=== PATIENT | male | born 1990 | race Two or more races ===

== ENCOUNTER 2019-06-04 11:40 | Emergency (ER) | payer BC ==
--- NOTE | 2019-06-04 11:48 | EDM.PDOC ---
ED HPI GENERAL MEDICAL PROBLEM - General Chief Complaint: Lower Extremity Injury/Pain Stated Complaint: INJURED LEFT SULLIVAN AT WORK Time Seen by Provider: 06/04/19 11:48 Source of Information: Reports: Patient History Limitations: Reports: No Limitations - History of Present Illness INITIAL COMMENTS - FREE TEXT/NARRATIVE: HISTORY AND PHYSICAL: History of present illness: Patient is a 29-year-old male presents to the ED with complaint of left left injury. He states he was walking up stairs yesterday at work when he slipped and fell hitting his left sullivan on the railing. He states this morning it was swollen and has pain when he walks on it. He denies proximal knee or hip pain and denies distal pain, numbness, or tingling. Review of systems: As per history of present illness and below otherwise all systems reviewed and negative. Past medical history: As per history of present illness and as reviewed below otherwise noncontributory. Surgical history: As per history of present illness and as reviewed below otherwise noncontributory. Social history: No reported history of drug or alcohol abuse. Family history: As per history of present illness and as reviewed below otherwise noncontributory. Physical exam: General: Patient sitting comfortably in no acute distress and nontoxic appearing HEENT: Atraumatic, normocephalic, pupils reactive, negative for conjunctival pallor or scleral icterus, mucous membranes moist, throat clear, neck supple, nontender, trachea midline. No meningeal signs. Lungs: Clear to auscultation, breath sounds equal bilaterally, chest nontender. Heart: S1S2, regular, negative for clicks, rubs, or overt murmur. Abdomen: Soft, nondistended, nontender. Negative for masses or hepatosplenomegaly. Negative for costovertebral tenderness. No rigidity, rebound , guarding. Pelvis: Stable nontender. Genitourinary: Deferred. Rectal: Deferred. Extremities: There is a quarter sized area of swelling without ecchymosis or erythema of the left anterior lower leg. Skin is intact. No left ankle or knee pain to palpation or pain with ROM. negative for cords or calf pain. Neurovascular unremarkable. Neuro: Awake, alert, oriented. Cranial nerves II through XII unremarkable. Cerebellum unremarkable. Motor and sensory unremarkable throughout. Exam nonfocal. Notes: Diagnostics: x-ray left tib/fib Therapeutics: [] Prescriptions: Impression: Left leg injury Plan: 1. Ice, elevate, and motrin or tylenol as needed 2. Follow up with primary care provider, please call the number provided to schedule an appointment 3. Return to ED as needed as discussed Definitive disposition and diagnosis as appropriate pending reevaluation and review of above. Left Lower Leg Pain Score (Numeric/FACES): 6 - Related Data Allergies Allergy/AdvReac Type Severity Reaction Status Date / Time amoxicillin Allergy Rash Verified 06/04/19 11:51 Home Meds: Home Meds . [No Known Home Meds] 06/04/19 [History] Review of Systems - Review of Systems Review Of Systems: ROS reveals no pertinent complaints other than HPI. ED EXAM, GENERAL - Physical Exam Exam: See Below (see dictation) Course - Vital Signs Last Recorded V/S: Last Vital Signs Temp 96.3 F 06/04/19 11:51 Pulse 62 06/04/19 11:51 Resp 16 06/04/19 11:51 BP 134/75 06/04/19 11:51 Pulse Ox 97 06/04/19 11:51 Departure - Departure Time of Disposition: 12:51 Disposition: Home, Self-Care 01 Condition: Good Clinical Impression: Left leg injury - Discharge Information Referrals: PCP,None [Primary Care Provider] - Forms: ED Department Discharge Additional Instructions: The following information is given to patients seen in the emergency department who are being discharged to home. This information is to outline your options for follow-up care. We provide all patients seen in our emergency department with a follow-up referral. The need for follow-up, as well as the timing and circumstances, are variable depending upon the specifics of your emergency department visit. If you don't have a primary care physician on staff, we will provide you with a referral. We always advise you to contact your personal physician following an emergency department visit to inform them of the circumstance of the visit and for follow-up with them and/or the need for any referrals to a consulting specialist. The emergency department will also refer you to a specialist when appropriate. This referral assures that you have the opportunity for follow-up care with a specialist. All of these measure are taken in an effort to provide you with optimal care, which includes your follow-up. Under all circumstances we always encourage you to contact your private physician who remains a resource for coordinating your care. When calling for follow-up care, please make the office aware that this follow-up is from your recent emergency room visit. If for any reason you are refused follow-up, please contact the [facility] Emergency Department at and asked to speak to the emergency department charge nurse. [facility] [address] [place] [id number] [facility] [address] [place] [id number] 1. Ice, elevate, and motrin or tylenol as needed 2. Follow up with primary care provider, please call the number provided to schedule an appointment 3. Return to ED as needed as discussed
--- NOTE | 2019-06-04 12:48 | CR ---
Left tibia and fibula: Two views left tibia and fibula were obtained. Comparison: No previous left tibia or fibula study. No fracture or other bony abnormality is seen. Impression: No abnormality is appreciated on left tibia and fibula study. Diagnostic code #1 MTDD
== END 2019-06-04 13:19 | disposition home or self-care (01) ==
LOC: MW.ED 11:40
DX: S89.92XA Unspecified injury of left lower leg, initial encounter (principal); Z88.1 Allergy status to other antibiotic agents; W01.198A Fall on same level from slipping, tripping and stumbling with subsequent striking against other object, initial encounter; Y93.01 Activity, walking, marching and hiking; Y92.89 Other specified places as the place of occurrence of the external cause; Y99.0 Civilian activity done for income or pay
CPT/HCPCS: 73590-26-LT; 73590-LT; 99283-25

== ENCOUNTER 2019-12-11 14:45 | Emergency (ER) | payer BC, OTHER ==
--- NOTE | 2019-12-11 15:42 | EDM.PDOC ---
ED HPI GENERAL MEDICAL PROBLEM - General Chief Complaint: Respiratory Problem Stated Complaint: COUGH Time Seen by Provider: 12/11/19 14:59 Source of Information: Reports: Patient History Limitations: Reports: No Limitations - History of Present Illness INITIAL COMMENTS - FREE TEXT/NARRATIVE: This 29 year old male presents to the ED with a chief complaint of increasing cough and SOB along with body aches. He states that he was in [place] two weeks ago and made several contacts with people in [facility] he did not know. He states that he began to have symptoms about 8 days ago. He also complains of a mild headache. Onset: Gradual - Related Data Allergies Allergy/AdvReac Type Severity Reaction Status Date / Time amoxicillin Allergy Rash Verified 12/11/19 14:47 Home Meds: Home Meds Benzonatate 200 mg PO BID 5 Days #10 capsule 12/11/19 [Rx] Past Medical History - Past Health History Medical/Surgical History: Denies Medical/Surgical History - Infectious Disease History Infectious Disease History: Reports: Chicken Pox - Past Surgical History Other Musculoskeletal Surgeries/Procedures:: Lower back spasmps a couple years ago. Social & Family History - Family History Family Medical History: Noncontributory - Tobacco Use Smoking Status *Q: Current Every Day Smoker Years of Tobacco use: 5 Packs/Tins Daily: 0.5 - Caffeine Use Caffeine Use: Reports: Coffee, Energy Drinks, Soda, Tea - Recreational Drug Use Recreational Drug Use: No ED ROS GENERAL - Review of Systems Review Of Systems: See Below Constitutional: Reports: Fever (history of fever and chills over past two days.) , Chills (chills for 24 hours.), Fatigue HEENT: Reports: No Symptoms Respiratory: Reports: Shortness of Breath, Cough (non-productive). Denies: Sputum, Hemoptysis Cardiovascular: Reports: No Symptoms Endocrine: Reports: No Symptoms GI/Abdominal: Reports: No Symptoms : Reports: No Symptoms Musculoskeletal: Reports: No Symptoms Skin: Reports: No Symptoms Neurological: Reports: No Symptoms Psychiatric: Reports: No Symptoms ED EXAM, GENERAL - Physical Exam Exam: See Below Exam Limited By: No Limitations General Appearance: Alert, WD/WN, No Apparent Distress Ears: Normal External Exam, Normal Canal, Hearing Grossly Normal, Normal TMs Nose: Normal Inspection, Normal Mucosa, No Blood Throat/Mouth: Normal Inspection, Normal Oropharynx Head: Atraumatic, Normocephalic Neck: Normal Inspection, Supple, Non-Tender. No: Lymphadenopathy (L), Lymphadenopathy (R) Respiratory/Chest: No Respiratory Distress, Lungs Clear, Normal Breath Sounds, Chest Non-Tender Cardiovascular: Normal Peripheral Pulses, Regular Rate, Rhythm, No Edema, No Gallop, No JVD, No Rub GI/Abdominal: Normal Bowel Sounds, Soft, Non-Tender, No Organomegaly, No Mass (Male) Exam: Deferred Rectal (Males) Exam: Deferred Back Exam: Normal Inspection Extremities: Normal Inspection, Normal Capillary Refill Neurological: Alert, Oriented, CN II-XII Intact, Normal Cognition, Normal Reflexes, No Motor/Sensory Deficits Psychiatric: Normal Affect, Normal Mood Skin Exam: Warm, Dry, Intact, Normal Color, No Rash Lymphatic: No Adenopathy Course - Vital Signs Text/Narrative:: The patient Influ A&B and the chest x-ray was negative. The COVID test will be resulted in two to three days. He will be discharged with the latest CDC protocol. He agrees with the discharge plan. Last Recorded V/S: Last Vital Signs Temp 97.5 F 12/11/19 14:47 Pulse 98 12/11/19 14:47 Resp 16 12/11/19 14:47 BP 141/88 H 12/11/19 14:47 Pulse Ox 95 12/11/19 14:47 - Orders/Labs/Meds Orders: Active Orders 24 hr Category Date Time Status CORONAVIRUS COVID-19 PCR PHL [MREF] Stat Lab 12/11/19 15:30 Received Isolation [COMM] Routine Oth 12/11/19 15:14 Active Departure - Departure Time of Disposition: 16:55 Disposition: Home, Self-Care 01 Condition: Good Clinical Impression: Viral syndrome - Discharge Information *PRESCRIPTION DRUG MONITORING PROGRAM REVIEWED*: Yes *COPY OF PRESCRIPTION DRUG MONITORING REPORT IN PATIENT ARIELA: Yes Instructions: Viral Respiratory Infection, [id number] Referrals: PCP,None [Primary Care Provider] - Forms: ED Department Discharge Additional Instructions: Take all medications as directed. We will give you a call as soon as your test are back. Follow the CDC guideline until you hear back from the hospital. Follow up with your PCP in the next two to four days. Drink plenty of clear liquids for the next 24-48 hours. Rest for the next 24 hours. Return to the ED if your condition gets worse or should you have any questions or concerns. The following information is given to patients seen in the emergency department who are being discharged to home. This information is to outline your options for follow-up care. We provide all patients seen in our emergency department with a follow-up referral. The need for follow-up, as well as the timing and circumstances, are variable depending upon the specifics of your emergency department visit. If you don't have a primary care physician on staff, we will provide you with a referral. We always advise you to contact your personal physician following an emergency department visit to inform them of the circumstance of the visit and for follow-up with them and/or the need for any referrals to a consulting specialist. The emergency department will also refer you to a specialist when appropriate. This referral assures that you have the opportunity for follow-up care with a specialist. All of these measure are taken in an effort to provide you with optimal care, which includes your follow-up. Under all circumstances we always encourage you to contact your private physician who remains a resource for coordinating your care. When calling for follow-up care, please make the office aware that this follow-up is from your recent emergency room visit. If for any reason you are refused follow-up, please contact the [facility] Emergency Department at and asked to speak to the emergency department charge nurse. Sepsis Event Note - Evaluation Sepsis Screening Result: No Definite Risk - Focused Exam Vital Signs: Vital Signs Temp Pulse Resp BP Pulse Ox 12/11/19 14:47 97.5 F 98 16 141/88 H 95 Date Exam was Performed: 12/11/19 Time Exam was Performed: 16:52 - My Orders Last 24 Hours: My Active Orders 12/11/19 15:14 Isolation [COMM] Routine 12/11/19 15:30 CORONAVIRUS COVID-19 PCR PHL [MREF] Stat - Assessment/Plan Last 24 Hours: My Active Orders 12/11/19 15:14 Isolation [COMM] Routine 12/11/19 15:30 CORONAVIRUS COVID-19 PCR PHL [MREF] Stat
--- NOTE | 2019-12-11 15:46 | CR ---
Chest: Portable view of the chest was obtained. Comparison: No prior chest imaging is available. Heart size and mediastinum are normal. Lungs show no acute parenchymal change. Bony structures are grossly intact. Impression: 1. Nothing acute is appreciated on portable chest x-ray. Diagnostic code #1 Study was dictated in MDT
== END 2019-12-11 17:35 | disposition home or self-care (01) ==
LOC: MW.ED 14:45
DX: B34.9 Viral infection, unspecified (principal); F17.210 Nicotine dependence, cigarettes, uncomplicated
CPT/HCPCS: 71045; 71045-26; 87804; 99282; 99285-25; U0002

== ENCOUNTER 2020-04-15 20:55 | Emergency (ER) | payer BC, OTHER ==
--- NOTE | 2020-04-15 21:26 | EDM.PDOC ---
ED HPI GENERAL MEDICAL PROBLEM - General Chief Complaint: Respiratory Problem Stated Complaint: SHORTNESS OF BREATHE Time Seen by Provider: 04/15/20 21:23 Source of Information: Reports: Patient History Limitations: Reports: No Limitations - History of Present Illness INITIAL COMMENTS - FREE TEXT/NARRATIVE: HISTORY AND PHYSICAL: History of present illness: Patient is a 30-year-old male who presents to the emergency room with complaints of shortness of breath and cough. He states he was seen in the emergency room 4 months ago for the same symptoms. At that time he had a chest x-ray, influenza and COVID-19 screening and was told everything was normal. He was given an inhaler which he had used and did have some good relief with this medication. He has been attributing his shortness of breath and cough to allergies. He states his symptoms are worse when he is around his dog. He reports he is slightly anxious as he feels he may have an underlying pneumonia and would like a chest x-ray done again. He states he has no concerns of COVID-19, declines wanting to be tested. His family members have been healthy and have not had any recent illness. Patient denies any fever, chills, headache, change in vision, syncope or near syncope. Denies any chest pain, back pain, abdominal pain, nausea, vomiting, diarrhea, constipation or dysuria.Patient has been eating and drinking appropriately. Review of systems: As per history of present illness and below otherwise all systems reviewed and negative. Past medical history: As per history of present illness and as reviewed below otherwise noncontributory. Surgical history: As per history of present illness and as reviewed below otherwise noncontributory. Social history: See social history for further information Family history: As per history of present illness and as reviewed below otherwise noncontributory. Physical exam: General: Well developed and well-nourished 30-year-old male. Alert and orient ed. Nontoxic-appearing and in no acute distress. HEENT: Atraumatic, normocephalic, pupils equal and reactive bilaterally, negative for conjunctival pallor or scleral icterus, mucous membranes moist, TMs normal bilaterally, throat clear, neck supple, nontender, trachea midline. No drooling or trismus noted. No meningeal signs. No hot potato voice noted. Lungs: Faint/fine exp wheezing to bilateral bases bilateral to auscultation, breath sounds equal bilaterally, chest nontender. Heart: S1S2, regular rate and rhythm without overt murmur Abdomen: Soft, nondistended, nontender. Skin: Intact, warm, dry. No lesions or rashes noted. Hematologic: No petechiae or purpra. Mucosa appropriate color and normal nail bed color and refill. Extremities: Atraumatic, moves all extremities per self without difficulty or deficits, negative for cords or calf pain. Neurovascular unremarkable. Neuro: Awake, alert, oriented. Cranial nerves II through XII unremarkable. Cerebellum unremarkable. Motor and sensory unremarkable throughout. Exam nonfocal. Notes: Patient's vital signs are stable, based on my evaluation and interview I am not concerned for a PE or COVID-19. Patient declines wanting any lab work at this time, stating that he would like just a chest x-ray. Due to length of symptoms I will treat with azithromycin. Will refill his inhaler. We discussed signs and symptoms that would prompt him to return to the emergency room. Supportive care measures were reviewed and discussed. Voices understanding and is agreeable to plan of care. Denies any further questions or concerns at this time. Diagnostics: CXR Therapeutics: Azithromycin, Prednisone Prescription: Albuterol Inhaler, Zpak, Prednisone Impression: Bronchitis Plan: 1. Today we are treating you with antibiotics based on the length of symptoms and your evaluation. The medication will treat atypical pneumonia. I also refilled your albuterol inhaler, can use 1-2 puffs every 4 hours as needed. If your symptoms should worsen, new symptoms develop or any of the signs and symptoms we discussed should arise please return to the emergency room or call [phone] (if needed). 2. I would like you to connect and establish care with a primary care provider. Please call Friday to set up an appointment. 3. Consider an [id number] allergy medication for your allergy symptoms (may also help with your breathing issues). Definitive disposition and diagnosis as appropriate pending reevaluation and review of above. - Related Data Allergies Allergy/AdvReac Type Severity Reaction Status Date / Time amoxicillin Allergy Rash Verified 04/15/20 21:44 Home Meds: Home Meds Benzonatate 200 mg PO BID 5 Days #10 capsule 12/11/19 [Rx] Albuterol Sulfate [Proair Hfa] 2 puff IH Q4H PRN #1 [id number] 04/15/20 [Rx] Azithromycin [Zithromax] 250 mg PO DAILY 5 Days #5 tab 04/15/20 [Rx] predniSONE [Prednisone] 50 mg PO DAILY 4 Days #4 tablet 04/15/20 [Rx] Past Medical History - Past Health History Medical/Surgical History: Denies Medical/Surgical History - Infectious Disease History Infectious Disease History: Reports: Chicken Pox - Past Surgical History Other Musculoskeletal Surgeries/Procedures:: Lower back spasmps a couple years ago. Social & Family History - Family History Family Medical History: Noncontributory - Caffeine Use Caffeine Use: Reports: Coffee, Energy Drinks, Soda, Tea ED ROS GENERAL - Review of Systems Review Of Systems: Comprehensive ROS is negative, except as noted in HPI. ED EXAM, GENERAL - Physical Exam Exam: See Below (See dictation) Course - Orders/Labs/Meds Orders: Active Orders 24 hr Category Date Time Status Communication Order [RC] STAT Care 04/15/20 21:42 Active RT Post Treatment Assessment [RC] Click to Edit Care 04/15/20 21:42 Active RT Pre-Treatment Assessment [RC] Click to Edit Care 04/15/20 21:42 Active Chest 2V [CR] Stat Exams 04/15/20 21:24 Ordered Meds: Medications Discontinued Medications Generic Name Dose Route Start Last Admin Trade Name Freq PRN Reason Stop Dose Admin Albuterol 2 gm 04/15/20 21:41 Ventolin Hfa INH 04/15/20 21:42 ONETIME ONE Azithromycin 500 mg 04/15/20 21:34 Zithromax PO 04/15/20 21:35 NOW STA Prednisone 40 mg 04/15/20 21:41 Prednisone PO 04/15/20 21:42 ONETIME ONE Departure - Departure Time of Disposition: 21:49 Disposition: Home, Self-Care 01 Clinical Impression: Bronchitis - Discharge Information Prescriptions: predniSONE [Prednisone] 50 mg PO DAILY 4 Days #4 tablet Albuterol Sulfate [Proair Hfa] 2 puff IH Q4H PRN #1 hfa.aer.ad PRN Reason: Dyspnea Azithromycin [Zithromax] 250 mg PO DAILY 5 Days #5 tab Instructions: Acute Bronchitis, Adult, [id number] Referrals: PCP,None [Primary Care Provider] - Forms: ED Department Discharge Additional Instructions: The following information is given to patients seen in the emergency department who are being discharged to home. This information is to outline your options for follow-up care. We provide all patients seen in our emergency department with a follow-up referral. The need for follow-up, as well as the timing and circumstances, are variable depending upon the specifics of your emergency department visit. If you don't have a primary care physician on staff, we will provide you with a referral. We always advise you to contact your personal physician following an emergency department visit to inform them of the circumstance of the visit and for follow-up with them and/or the need for any referrals to a consulting specialist. The emergency department will also refer you to a specialist when appropriate. This referral assures that you have the opportunity for follow-up care with a specialist. All of these measure are taken in an effort to provide you with optimal care, which includes your follow-up. Under all circumstances we always encourage you to contact your private physician who remains a resource for coordinating your care. When calling for follow-up care, please make the office aware that this follow-up is from your recent emergency room visit. If for any reason you are refused follow-up, please contact the [facility] Emergency Department at and asked to speak to the emergency department charge nurse. [facility] Primary Care [address] [place] [id number] [place] [address] Thank you for choosing the [facility] emergency department in [place] for your medical needs today. It was a pleasure caring for you. Today you were seen in the emergency department for cough and shortness of breath. 1. Today we are treating you with antibiotics based on the length of symptoms and your evaluation. The medication will treat atypical pneumonia. I also refilled your albuterol inhaler, can use 1-2 puffs every 4 hours as needed. If your symptoms should worsen, new symptoms develop or any of the signs and symptoms we discussed should arise please return to the emergency room or call [phone] (if needed). 2. I would like you to connect and establish care with a primary care provider. Please call Friday to set up an appointment. 3. Consider an [id number] allergy medication for your allergy symptoms (may also help with your breathing issues). - My Orders Last 24 Hours: My Active Orders 04/15/20 21:24 Chest 2V [CR] Stat 04/15/20 21:42 Communication Order [RC] STAT RT Post Treatment Assessment [RC] Click to Edit RT Pre-Treatment Assessment [RC] Click to Edit - Assessment/Plan Last 24 Hours: My Active Orders 04/15/20 21:24 Chest 2V [CR] Stat 04/15/20 21:42 Communication Order [RC] STAT RT Post Treatment Assessment [RC] Click to Edit RT Pre-Treatment Assessment [RC] Click to Edit
[2020-04-15] MEDS ORDERED: Azithromycin 250 MG Tab PO STA (21:34)
[2020-04-15] MEDS ORDERED: Albuterol 8 GM Inhaler INH ONE (21:41)
[2020-04-15] MEDS ORDERED: predniSONE 20 MG Tab PO ONE (21:41)
--- NOTE | 2020-04-15 22:35 | CR ---
INDICATION: Chest pain. Shortness of breath. TECHNIQUE: PA and lateral chest. COMPARISON: None. FINDINGS: Clear lungs. Normal heart size and pulmonary vascularity. Normal included skeleton. IMPRESSION: Negative two-view chest. Dictated by Naga Cortes MD @ Apr 15 2020 10:32PM Signed by Dr. Naga Cortes @ Apr 15 2020 10:33PM
== END 2020-04-15 22:54 | disposition home or self-care (01) ==
LOC: MW.ED 20:55
DX: J40 Bronchitis, not specified as acute or chronic (principal); Z88.1 Allergy status to other antibiotic agents
CPT/HCPCS: 71046; 99285; A9270; 99282

== ENCOUNTER 2020-06-25 21:19 | Emergency (ER) | payer BC ==
[2020-06-25] MEDS ORDERED: Prochlorperazine 10 MG/2 ML SDV IVPUSH ONE (22:04)
[2020-06-25] MEDS ORDERED: diphenhydrAMINE 50 MG/ML SDV IVPUSH ONE (22:04)
[2020-06-25] MEDS ORDERED: Ketorolac 15 MG/ML SDV IVPUSH ONE (22:04)
[2020-06-25] MEDS ORDERED: Dextrose 5%-Lactated Ringers 1,000 ML IV SCH (22:15)
[2020-06-25 23:55] LABS: BLOOD UREA NITROGEN,BUN 21 mg/dL (7.0-18.0); CARBON DIOXIDE,CO2 26.5 mmol/L (21.0-32.0); CHLORIDE,CL 105 mmol/L (98-107); GLUCOSE RANDOM 111 mg/dL (74-106); POTASSIUM,K 4.1 mmol/L (3.5-5.1); SODIUM,NA 140 mmol/L (136-148)
--- NOTE | 2020-06-26 01:15 | EDM.PDOC ---
ED HPI GENERAL MEDICAL PROBLEM - General Chief Complaint: General Stated Complaint: LIGHTHEADED FOR 2 WEEKS Time Seen by Provider: 06/25/20 21:47 - History of Present Illness INITIAL COMMENTS - FREE TEXT/NARRATIVE: CHIEF COMPLAINT(S): Dizziness HISTORY OF PRESENT ILLNESS: This is a 30-year-old man without any past medical history who comes to the emergency department with a chief complaint of dizziness. The patient states that off and on for the last 2 weeks he has been experiencing a headache which he describes as frontal he describes it as a constant aching pain rated 7 out of 10 without any associated diplopia, numbn ess, tingling, or weakness. He states that he feels pressure in his eyes. He denies any cough, runny nose, congestion, or earache. He states that the pain is worse when he moves his head. He states that he does have some photosensitivity. States that it feels like a migraine. He states that he does feel dizzy like the room is spinning and does have some nausea but denies any vomiting. He denies any trouble walking, trouble speaking, or trouble swallowing. He states that he has been tolerating p.o. without any difficulty. He denies any family history of aneurysms, migraines or any personal history of headache. He denies any head injury or loss of consciousness. He denies any fevers, neck pain, or chills. He states that he is in the emergency department because his mother said that he needs to come in to check his blood levels. REVIEW OF SYSTEMS: Constitutional: Denies fever, chills. Eyes: Positive for pressure behind the eyes. Ears, Nose, Mouth, & Throat: Denies earache, runny nose, sore throat Cardiovascular: Denies chest pain Respiratory: Denies shortness of breath Gastrointestinal: Positive for nausea. Denies vomiting, diarrhea, hematochezia, hematemesis, bilious emesis Genitourinary: Denies hematuria Skin:Denies a rash Neurological: Positive for headache. Denies blurred vision, diplopia, numbness, tingling, weakness Psychiatric: Denies depression PAST MEDICAL HISTORY: As per history of present illness and as reviewed below otherwise noncontributory. SURGICAL HISTORY: As per history of present illness and as reviewed below otherwise noncontributory. SOCIAL HISTORY: As per history of present illness and as reviewed below otherwise noncontributory. FAMILY HISTORY: As per history of present illness and as reviewed below otherwise noncontributory. EXAMINATION OF ORGAN SYSTEMS/BODY AREAS: Constitutional: Blood pressure was 138/81, heart rate 86, respiratory rate 16 with an oxygen saturation 96% on room air. Temperature 36.1 General: Overall well-appearing man who is in no acute distress Psychiatric: Appropriate mood and affect. Eyes: No scleral icterus or conjunctival erythema pupils are equal round and reactive to light. Extraocular movements are intact. No vertical, horizontal, or rotary nystagmus. ENMT: Moist mucous membranes. No pharyngeal erythema tongue protrudes midline. Bilateral nasal turbinates clear without any erythema or drainage. Bilateral tympanic membranes clear without any effusion or erythema. Cardiovascular: Regular, rate, and rythym. No gallops, murmurs, or rubs. Bilateral upper extremity pulses symmetric and intact. No peripheral edema. No JVD. Respiratory: Lungs clear to auscultation bilaterally. No wheezes, rales, or rhonchi. Gastrointestinal: Soft, non-tender, non-distended. Normoactive bowel sounds Genitourinary: No suprapubic tenderness Musculoskeletal: Normal range of motion. Skin: No lesions or abrasions. Neurological: AOx4. CN grossly intact. Stregth 5/5 in bilateral upper and lower extremity. Sensation is intact bilaterally in upper and lower extremity. Gait appears normal. Finger to nose, heel to sullivan, rapid alternating movements intact. MEDICAL DECISION MAKING AND COURSE IN THE ED WITH INTERPRETATION/REVIEW OF DIAGNOSTIC STUDIES: This is a 30-year-old and without any significant past medical history who comes to the emergency department with 2 weeks of intermittent bifrontal headache associated with photosensitivity and nausea and a vertigo-like sensation who has a normal neurological examination and vital signs. At this time the patient does not have any focal neurological deficit. I do believe this is secondary to possibly migraine headache versus viral upper respiratory infection versus sinusitis. We will obtain labs to evaluate for any abnormality. Will provide the patient with Toradol, Compazine, Benadryl and reevaluate for improvement. I do not believe any imaging is indicated at this time. Laboratory: CBC is unremarkable. BMP is unremarkable. On reevaluation, the patient continued to be neurologically intact and had no worsening of his headache or nausea. He states that his headache and nausea had significantly improved. He was no longer experiencing vertigo. I did discuss with him at this time that I do believe this secondary to migraine headache versus benign vertigo. I discussed the use of [id number] Excedrin or Aleve for pain relief. He is to return to the emergency department for any new or worsening symptoms such as intractable light-emitting, trouble walking, trouble speaking, trouble swallowing. He was amenable to discharge at this time and had no further questions DISPOSITION: The patient was discharged home in stable condition. The patient will follow up with PCP within 2 to 3 days CONDITION: Fair PROCEDURES: None FINAL IMPRESSION(S)/DIAGNOSES: 1. Subacute migraine headache Jp Lerma M.D. Headache Pain Score (Numeric/FACES): 3 - Related Data Allergies Allergy/AdvReac Type Severity Reaction Status Date / Time amoxicillin Allergy Rash Verified 04/15/20 21:44 Home Meds: Home Meds Albuterol Sulfate [Proair Hfa] 2 puff IH Q4H PRN #1 [email or web address] 04/15/20 [Rx] Past Medical History - Past Health History Medical/Surgical History: Denies Medical/Surgical History - Infectious Disease History Infectious Disease History: Reports: Chicken Pox - Past Surgical History Other Musculoskeletal Surgeries/Procedures:: Lower back spasmps a couple years ago. Social & Family History - Family History Family Medical History: Noncontributory - Tobacco Use Tobacco Use Status *Q: Former Tobacco User Used Tobacco, but Quit: Yes Month/Year Tobacco Last Used: 02/2020 - Caffeine Use Caffeine Use: Reports: Coffee, Energy Drinks, Soda, Tea - Recreational Drug Use Recreational Drug Use: No ED ROS GENERAL - Review of Systems Review Of Systems: See Below ED EXAM, GENERAL - Physical Exam Exam: See Below Course - Vital Signs Last Recorded V/S: Last Vital Signs Temp 36.2 C 06/25/20 23:51 Pulse 81 06/26/20 01:01 Resp 16 06/26/20 01:01 BP 124/70 06/26/20 01:01 Pulse Ox 95 06/26/20 01:01 - Orders/Labs/Meds Labs: Laboratory Tests 06/25/20 06/25/20 Range/Units 23:30 23:30 WBC 6.73 (4.0-11.0) K/uL RBC 5.26 (4.50-5.90) M/uL Hgb 15.2 (13.0-17.0) g/dL Hct 45.8 (38.0-50.0) % MCV 87.1 (80.0-98.0) fL MCH 28.9 (27.0-32.0) pg MCHC 33.2 (31.0-37.0) g/dL RDW Std Deviation 40.4 (28.0-62.0) fl RDW Coeff of Damaso 13 (11.0-15.0) % Plt Count 167 (150-400) K/uL MPV 11.00 (7.40-12.00) fL Neut % (Auto) 50.7 (48.0-80.0) % Lymph % (Auto) 39.8 (16.0-40.0) % Boyd % (Auto) 8.2 (0.0-15.0) % Eos % (Auto) 1.2 (0.0-7.0) % Baso % (Auto) 0.1 (0.0-1.5) % Neut # (Auto) 3.4 (1.4-5.7) K/uL Lymph # (Auto) 2.7 H (0.6-2.4) K/uL Boyd # (Auto) 0.6 (0.0-0.8) K/uL Eos # (Auto) 0.1 (0.0-0.7) K/uL Baso # (Auto) 0.0 (0.0-0.1) K/uL Nucleated RBC % 0.0 /100WBC Nucleated RBCs # 0 K/uL Sodium 140 (136-148) mmol/L Potassium 4.1 (3.5-5.1) mmol/L Chloride 105 (98-107) mmol/L Carbon Dioxide 26.5 (21.0-32.0) mmol/L BUN 21 H (7.0-18.0) mg/dL Creatinine 0.9 (0.8-1.3) mg/dL Est Cr Clr Drug Dosing 118.92 mL/min Estimated GFR (MDRD) > 60.0 ml/min Glucose 111 H (74-106) mg/dL Calcium 9.2 (8.5-10.1) mg/dL Meds: Medications Discontinued Medications Generic Name Dose Route Start Last Admin Trade Name Silas PRN Reason Stop Dose Admin Diphenhydramine HCl 50 mg 06/25/20 22:04 06/25/20 23:27 Benadryl IVPUSH 06/25/20 22:05 50 mg ONETIME ONE Administration Dextrose/Lactated Ringer's 1,000 mls @ 999 mls/hr 06/25/20 22:15 06/25/20 23:27 Dextrose 5%-Lactated Ringers IV 999 mls/hr ASDIRECTED TAL Administration Ketorolac Tromethamine 15 mg 06/25/20 22:04 06/25/20 23:27 Toradol IVPUSH 06/25/20 22:05 15 mg ONETIME ONE Administration Prochlorperazine Edisylate 10 mg 06/25/20 22:04 06/25/20 23:27 Compazine IVPUSH 06/25/20 22:05 10 mg ONETIME ONE Administration Departure - Departure Time of Disposition: 01:14 Disposition: Home, Self-Care 01 Condition: Fair Clinical Impression: Migraine Qualifiers: Migraine type: without aura Status migrainosus presence: without status migrainosus Intractability: not intractable Qualified Code(s): G43.009 - Migraine without aura, not intractable, without status migrainosus - Discharge Information *PRESCRIPTION DRUG MONITORING PROGRAM REVIEWED*: No *COPY OF PRESCRIPTION DRUG MONITORING REPORT IN PATIENT ARIELA: No Instructions: Migraine Headache, [id number] Referrals: PCP,None [Primary Care Provider] - Forms: ED Department Discharge Additional Instructions: The patient is informed of any results of their evaluation and diagnostic workup and all questions are answered. They are given discharge instructions and return precautions. The patient is stable for discharge. The patient states they understand and agree with the plan and that they will return if their symptoms get worse or if they have any new concerns. The following information is given to patients seen in the emergency department who are being discharged to home. This information is to outline your options for follow-up care. We provide all patients seen in our emergency department with a follow-up referral. The need for follow-up, as well as the timing and circumstances, are variable depending upon the specifics of your emergency department visit. If you don't have a primary care physician on staff, we will provide you with a referral. We always advise you to contact your personal physician following an emergency department visit to inform them of the circumstance of the visit and for follow-up with them and/or the need for any referrals to a consulting specialist. The emergency department will also refer you to a specialist when appropriate. This referral assures that you have the opportunity for follow-up care with a specialist. All of these measure are taken in an effort to provide you with optimal care, which includes your follow-up. Under all circumstances we always encourage you to contact your private physician who remains a resource for coordinating your care. When calling for follow-up care, please make the office aware that this follow-up is from your recent emergency room visit. If for any reason you are refused follow-up, please contact the [facility] Emergency Department at and asked to speak to the emergency department charge nurse. [facility] [address] [place] [address] [place] [address] Please use [id number] Excedrin or Motrin or Aleve for pain relief. Please return to the emergency department if you were to develop intractable vomiting, worsening headache, trouble walking, trouble speaking, trouble swallowing. Please follow-up with primary care physician within 1 week. Sepsis Event Note (ED) - Evaluation Sepsis Screening Result: No Definite Risk - Focused Exam Vital Signs: Vital Signs Temp Pulse Resp BP Pulse Ox 06/26/20 01:01 81 16 124/70 95 06/26/20 00:14 18 97 06/25/20 23:51 36.2 C 95 16 127/84 94 L 06/25/20 21:44 36.1 C 86 16 138/81 96
== END 2020-06-26 01:30 | disposition home or self-care (01) ==
LOC: MW.ED 21:19
DX: G43.009 Migraine without aura, not intractable, without status migrainosus (principal); Z87.891 Personal history of nicotine dependence; Z88.0 Allergy status to penicillin
CPT/HCPCS: 36415; 80048; 85025; 96374; 96375; 99284; J0780; J1200; J1885; J7121; 99283

== ENCOUNTER 2021-07-18 19:27 | Emergency (ER) | payer BC, MEDICAID ==
--- NOTE | 2021-07-18 22:20 | CR ---
INDICATION: Cough and shortness of breath. COMPARISON: 04/15/2020 FINDINGS: An erect single view of the chest was obtained at 21 44 hours. The lungs remain clear. No focal or diffuse infiltrates are present. The heart remains normal in size. The mediastinum is normal in appearance. The osseous structures are normal in appearance for the patient`s age. IMPRESSION: Normal chest single view. Dictated by Nathan Caballero MD @ 07/18/2021 10:19:18 PM (Electronically Signed)
--- NOTE | 2021-07-18 23:08 | EDM.PDOC ---
ED HPI GENERAL MEDICAL PROBLEM - General Chief Complaint: Respiratory Problem Stated Complaint: COUGH,FEVER Time Seen by Provider: 07/18/21 21:31 - History of Present Illness INITIAL COMMENTS - FREE TEXT/NARRATIVE: CHIEF COMPLAINT(S): Cough HISTORY OF PRESENT ILLNESS: This is a 31-year-old man with a past medical history of hypertension who comes to the emergency department with a chief complaint of cough. The patient states that for the last 2 days he has been experiencing an intermittent fever, nonproductive cough, bifrontal headache not associated with any blurry vision, double vision, loss of vision. He denies any numbness, tingling, weakness. He rates his pain as 4-5 out of 10. He denies any radiation of this pain. There is no aggravating relieving symptoms. He states that he feels like his chest and congested. He states that he was exposed to Covid approximately 1-1/2 weeks ago and is concerned that he may have Covid. He denies any chest pain, shortness of breath. He denies any other symptoms REVIEW OF SYSTEMS: Constitutional: Positive for fever. Eyes: Denies eye pain Ears, Nose, Mouth, & Throat: Positive for congestion. Denies earache Cardiovascular: Denies chest pain Respiratory: Positive for nonproductive cough. Denies shortness of breath Gastrointestinal: Denies Nausea, vomiting, diarrhea, hematochezia. Genitourinary: Denies hematuria Skin:Denies a rash MSK: Denies joint pain Neurological: Positive for headache. Denies blurred vision, numbness, tingling, weakness Psychiatric: Denies depression PAST MEDICAL HISTORY: As per history of present illness and as reviewed below ot herwise noncontributory. SURGICAL HISTORY: As per history of present illness and as reviewed below otherwise noncontributory. SOCIAL HISTORY: As per history of present illness and as reviewed below otherwise noncontributory. FAMILY HISTORY: As per history of present illness and as reviewed below otherwise noncontributory. EXAMINATION OF ORGAN SYSTEMS/BODY AREAS: Constitutional: Blood pressure is 129/76, heart rate 90, respiratory rate 18 with an oxygen saturation 96% on room air. Temperature 36.6 General: Well-appearing man who is in no acute distress Psychiatric: Appropriate mood and affect. Eyes: No scleral icterus or conjunctival erythema ENMT: Moist mucous membranes. No pharyngeal erythema Cardiovascular: Regular, rate, and rhythm. No gallops, murmurs, or rubs. Bilateral upper extremity pulses symmetric and intact. No peripheral edema. No JVD. Respiratory: Lungs clear to auscultation bilaterally. No wheezes, rales, or rhonchi. Gastrointestinal: Soft, non-tender, non-distended. Normoactive bowel sounds Genitourinary: No suprapubic tenderness Musculoskeletal: Normal range of motion. Skin: No lesions or abrasions. Neurological: Alert, GCS 15 MEDICAL DECISION MAKING AND COURSE IN THE ED WITH INTERPRETATION/REVIEW OF DIAGNOSTIC STUDIES: This is a 31-year-old man with a past medical history of hypertension who comes to the emergency department with fever, cough, congestion with a known Covid exposure approximately 1-1/2 weeks ago who overall appears well with normal vital signs. At this time we will obtain a Covid swab. A screening EKG was obtained which did not reveal any acute signs of ischemia. And we will also obtain a chest x-ray. I do not believe any therapeutics are indicated at this time as the patient appears well. DDx: COVID-19, viral respiratory infection Laboratory: COVID-19 negative. The radiological images were viewed by myself along with reading the report from the radiologist. Chest x-ray does not reveal any acute cardiopulmonary process. After lab and imaging I did discuss results with the patient. At this time I did discuss strict return precautions. He is to quarantine given his exposure even though his COVID-19 is negative. He amenable to discharge and had no further questions. DISPOSITION: The patient was discharged home in stable condition. The patient will follow up with primary physician after quarantine. CONDITION: Fair PROCEDURES: None FINAL IMPRESSION(S)/DIAGNOSES: 1. Acute COVID-19 exposure 2. Acute viral upper respiratory infection Jp Lerma M.D. chest area Pain Score (Numeric/FACES): 5 - Related Data Allergies Allergy/AdvReac Type Severity Reaction Status Date / Time amoxicillin Allergy Rash Verified 07/18/21 20:18 Home Meds: Home Meds Albuterol Sulfate [Proair Hfa] 2 puff IH Q4H PRN #1 [email or web address].ad 04/15/20 [Rx] Past Medical History - Past Health History Medical/Surgical History: Denies Medical/Surgical History HEENT History: Reports: None Cardiovascular History: Reports: Hypertension Respiratory History: Reports: Asthma Gastrointestinal History: Reports: None Genitourinary History: Reports: None Musculoskeletal History: Reports: None Neurological History: Reports: None Psychiatric History: Reports: None Endocrine/Metabolic History: Reports: None Insulin Pump Model and Game Producer: N/A Hematologic History: Reports: None Immunologic History: Reports: None Oncologic (Cancer) History: Reports: None Dermatologic History: Reports: None - Infectious Disease History Infectious Disease History: Reports: Chicken Pox - Past Surgical History Musculoskeletal Surgical History: Reports: None Social & Family History - Family History Family Medical History: No Pertinent Family History - Caffeine Use Caffeine Use: Reports: Coffee - Recreational Drug Use Recreational Drug Use: No ED ROS GENERAL - Review of Systems Review Of Systems: See Below ED EXAM, GENERAL - Physical Exam Exam: See Below Course - Vital Signs Last Recorded V/S: Last Vital Signs Temp 36.6 C 07/18/21 20:18 Pulse 84 07/18/21 23:45 Resp 16 07/18/21 23:45 BP 118/70 07/18/21 23:45 Pulse Ox 95 07/18/21 23:45 - Orders/Labs/Meds Labs: Laboratory Tests 07/18/21 Range/Units 20:25 SARS-CoV-2 RNA (NOLAN) NEGATIVE (NEGATIVE) Departure - Departure Time of Disposition: 23:06 Disposition: Home, Self-Care 01 Clinical Impression: Viral URI, Exposure to COVID-19 virus - Discharge Information *PRESCRIPTION DRUG MONITORING PROGRAM REVIEWED*: No *COPY OF PRESCRIPTION DRUG MONITORING REPORT IN PATIENT ARIELA: No Instructions: Viral Respiratory Infection, [id number], How to Wear and Take Off Your Mask - CDC (12/07/2020), Symptoms of COVID-19 - CDC (10/30/2020), COVID-19: Quarantine vs. Isolation - [facility] (08/24/2020) Referrals: PCP,None [Primary Care Provider] - Forms: ED Department Discharge Additional Instructions: You were evaluated today on an emergent basis. At this time your x-ray did not reveal any pneumonia and your Covid swab was negative. However given that your symptoms have been going on for approximately 2 days you may be early in the illness given that you have been exposed directly to COVID-19. I recommend that you quarantine for 14 days since your exposure and if you continue to be more symptomatic to get a retest. If you do have a pulse oximeter at home I re commend you monitor it to make sure that it does not go below 91% and use Tylenol and Motrin for pain relief. Please return for any chest pain, worsening shortness of breath or you are concerned. Follow-up with primary care physician after the 14-day quarantine [facility] - [facility] [address] [place] [address] [facility] [address] [place] [id number] The patient is informed of any results of their evaluation and diagnostic workup and all questions are answered. They are given discharge instructions and return precautions. The patient is stable for discharge. The patient states they understand and agree with the plan and that they will return if their symptoms get worse or if they have any new concerns. The following information is given to patients seen in the emergency department who are being discharged to home. This information is to outline your options for follow-up care. We provide all patients seen in our emergency department with a follow-up referral. The need for follow-up, as well as the timing and circumstances, are variable depending upon the specifics of your emergency department visit. If you don't have a primary care physician on staff, we will provide you with a referral. We always advise you to contact your personal physician following an emergency department visit to inform them of the circumstance of the visit and for follow-up with them and/or the need for any referrals to a consulting specialist. The emergency department will also refer you to a specialist when appropriate. This referral assures that you have the opportunity for follow-up care with a specialist. All of these measure are taken in an effort to provide you with optimal care, which includes your follow-up. Under all circumstances we always encourage you to contact your private physician who remains a resource for coordinating your care. When calling for follow-up care, please make the office aware that this follow-up is from your recent emergency room visit. If for any reason you are refused follow-up, please contact the [facility] Emergency Department at and asked to speak to the emergency department charge nurse. Sepsis Event Note (ED) - Evaluation Sepsis Screening Result: No Definite Risk
--- NOTE | 2021-07-18 23:09 | PCM.EKG ---
#1 Interpretation EKG Date: 07/18/21 Time: 23:00 Rhythm: NSR Rate (Beats/Min): 78 [place]: Normal P-Wave: Present QRS: Normal ST-T: Normal QT: Normal Comparison: NA - No Prior EKG EKG Interpretation Comments: Sinus Rhythm
== END 2021-07-18 22:45 | disposition home or self-care (01) ==
LOC: MW.ED 19:27
DX: J06.9 Acute upper respiratory infection, unspecified (principal); I10 Essential (primary) hypertension; Z20.822 Contact with and (suspected) exposure to COVID-19; Z88.0 Allergy status to penicillin
CPT/HCPCS: 71045; 71045-26; 99284-25; U0002

== ENCOUNTER 2021-09-17 12:14 | Emergency (ER) | payer SELFPAY ==
--- NOTE | 2021-09-17 12:40 | EDM.PDOC ---
ED HPI GENERAL MEDICAL PROBLEM - General Chief Complaint: Respiratory Problem Stated Complaint: FEVER, COUGH Time Seen by Provider: 09/17/21 12:25 - History of Present Illness INITIAL COMMENTS - FREE TEXT/NARRATIVE: History of present illness: [] Patient started having symptoms on 15 September 2021. Patient has cough and body aches. He feels feverish. He is nauseated. He is not actually vomiting. He has had COVID-19 about a year or more ago. When he had it last time he also had pneumonia and was placed on antibiotics and improved fairly quickly. Patient has hypertension for which he takes medicine morning and night but no other significant risk factors other than his weight. Review of systems: As per history of present illness and below otherwise all systems reviewed and negative. Past medical history: As per history of present illness and as reviewed below otherwise noncontributory. Surgical history: As per history of present illness and as reviewed below otherwise noncontributory. Social history: No reported history of drug or alcohol abuse. Family history: As per history of present illness and as reviewed below otherwise noncontributory. Physical exam: Constitutional -BMI 41.5 with body weight 131.5 kg well developed, well- nourished and in no acute distress HEENT - normocephalic, no evidence of trauma - external nose and mouth normal - no mass in neck and no JVD - mucosae moist EYES - full EOM, PERRL, no icterus - no evidence of inflammation, injection, or drainage Respiratory - no respiratory distress, equal bilateral expansion, lungs clear to auscultation and no abnormal lung sounds Cardiovascular - Regular Rhythm with S1 and S2 appreciated and no murmur, gallop or rub. GI - abdomen soft without distension or organomegaly - normal bowel sounds - no guard or rebound Musculoskeletal no gross deformity of long bones or joints - no tenderness, swelling or edema Neurologic - Alert and oriented times four - CN II-XII grossly intact - motor sensory and coordination symmetrically normal Psychiatric - appropriate mood and affect with normal thought content Hematologic - No petechiae or purpura - mucosa appropriate color and sclera not pale - normal nail bed color and refill Integument - no rash or evidence of trauma - normal turgor Diagnostics: [] Therapeutics: [] Impression: [] Plan: [] Definitive disposition and diagnosis as appropriate pending reevaluation and review of above. headache Pain Score (Numeric/FACES): 8 - Related Data Allergies Allergy/AdvReac Type Severity Reaction Status Date / Time amoxicillin Allergy Rash Verified 09/17/21 12:27 Home Meds: Home Meds Albuterol Sulfate [Proair Hfa] 2 puff IH Q4H PRN #1 [email or web address] 04/15/20 [Rx] Past Medical History - Past Health History Medical/Surgical History: Denies Medical/Surgical History HEENT History: Reports: None Cardiovascular History: Reports: Hypertension Respiratory History: Reports: Asthma Gastrointestinal History: Reports: None Genitourinary History: Reports: None Musculoskeletal History: Reports: None Neurological History: Reports: None Psychiatric History: Reports: None Endocrine/Metabolic History: Reports: None Insulin Pump Model and Fountain Dispenser: N/A Hematologic History: Reports: None Immunologic History: Reports: None Oncologic (Cancer) History: Reports: None Dermatologic History: Reports: None - Infectious Disease History Infectious Disease History: Reports: Chicken Pox - Past Surgical History Musculoskeletal Surgical History: Reports: None Other Musculoskeletal Surgeries/Procedures:: Lower back spasmps a couple years ago. Social & Family History - Family History Family Medical History: No Pertinent Family History - Tobacco Use Tobacco Use Status *Q: Never Tobacco User - Caffeine Use Caffeine Use: Reports: None - Recreational Drug Use Recreational Drug Use: No ED ROS GENERAL - Review of Systems Review Of Systems: Comprehensive ROS is negative, except as noted in HPI. ED EXAM, GENERAL - Physical Exam Exam: See Below Free Text/Narrative:: My physical exam is in the HPI Course - Vital Signs Last Recorded V/S: Last Vital Signs Temp 36.2 C 09/17/21 12:27 Pulse 71 09/17/21 12:27 Resp 16 09/17/21 12:27 BP 131/77 09/17/21 12:27 Pulse Ox 97 09/17/21 12:27 - Orders/Labs/Meds Orders: Active Orders 24 hr Category Date Time Status COVID-19/FLU A+B [MOLEC] Stat Lab 09/17/21 12:30 Results Labs: Laboratory Tests 09/17/21 Range/Units 12:30 Influenza Type A RNA NEGATIVE (NEGATIVE) Influenza Type B RNA NEGATIVE (NEGATIVE) Departure - Departure Time of Disposition: 13:37 Disposition: Home, Self-Care 01 Condition: Good Clinical Impression: COVID-19 virus infection - Discharge Information Instructions: COVID-19 Vaccine Information, COVID-19: What to Do If You Are Sick- CDC (11/22/2020), COVID-19 Quarantine vs. Isolation - [facility] [place] (06/04/2021) Forms: ED Department Discharge Additional Instructions: You are a candidate for monoclonal antibodies if you so desire. If you feel short of breath and think your oxygen may be low you should return. The health department should be in touch to help you determine when you can safely release yourself from quarantine and isolation. [facility] [address] [place] [id number] [id number] The following information is given to patients seen in the emergency department who are being discharged to home. This information is to outline your options for follow-up care. We provide all patients seen in our emergency department with a follow-up referral. The need for follow-up, as well as the timing and circumstances, are variable depending upon the specifics of your emergency department visit. If you don't have a primary care physician on staff, we will provide you with a referral. We always advise you to contact your personal physician following an emergency department visit to inform them of the circumstance of the visit and for follow-up with them and/or the need for any referrals to a consulting specialist. The emergency department will also refer you to a specialist when appropriate. This referral assures that you have the opportunity for follow-up care with a specialist. All of these measure are taken in an effort to provide you with optimal care, which includes your follow-up. Under all circumstances we always encourage you to contact your private physician who remains a resource for coordinating your care. When calling for follow-up care, please make the office aware that this follow-up is from your recent emergency room visit. If for any reason you are refused follow-up, please contact the [facility] Emergency Department at and asked to speak to the emergency department charge nurse. Sepsis Event Note (ED) - Focused Exam Vital Signs: Vital Signs Temp Pulse Resp BP Pulse Ox 09/17/21 12:27 36.2 C 71 16 131/77 97 - My Orders Last 24 Hours: My Active Orders 09/17/21 12:30 COVID-19/FLU A+B [MOLEC] Stat - Assessment/Plan Last 24 Hours: My Active Orders 09/17/21 12:30 COVID-19/FLU A+B [MOLEC] Stat
[2021-09-17 13:23] LABS: CORONAVIRUS COVID-19 NAA POSITIVE (NEGATIVE); INFLUENZA A NAA NEGATIVE (NEGATIVE); INFLUENZA B NAA NEGATIVE (NEGATIVE)
== END 2021-09-17 13:48 | disposition home or self-care (01) ==
LOC: MW.ED 12:14
DX: U07.1 COVID-19 (principal); I10 Essential (primary) hypertension; J45.909 Unspecified asthma, uncomplicated; Z88.0 Allergy status to penicillin
CPT/HCPCS: 0240U; 99283

== ENCOUNTER 2021-11-23 22:13 | Emergency (ER) | payer SELFPAY ==
[2021-11-23 23:44] LABS: CORONAVIRUS COVID-19 NAA NEGATIVE (NEGATIVE); INFLUENZA A NAA NEGATIVE (NEGATIVE); INFLUENZA B NAA NEGATIVE (NEGATIVE); RESPIRATORY SYNCYTIAL VIR NAA NEGATIVE (NEGATIVE)
== END 2021-11-24 00:10 | disposition home or self-care (01) ==
LOC: MW.ED 22:13
DX: J06.9 Acute upper respiratory infection, unspecified (principal); I10 Essential (primary) hypertension; Z88.0 Allergy status to penicillin; Z20.822 Contact with and (suspected) exposure to COVID-19
CPT/HCPCS: 0241U; 71046; 99283; 99282

== ENCOUNTER 2021-11-28 21:28 | Emergency (ER) | payer SELFPAY ==
[2021-11-28] MEDS ORDERED: Ibuprofen 600 MG Tab PO ONE (22:10)
== END 2021-11-28 23:31 | disposition home or self-care (01) ==
LOC: MW.ED 21:28
DX: M79.604 Pain in right leg (principal); Z88.0 Allergy status to penicillin
CPT/HCPCS: 36415; 85379; 99283; A9270

== ENCOUNTER 2022-02-09 00:58 | Emergency (ER) | payer SELFPAY ==
[2022-02-09] MEDS ORDERED: Ketorolac 30 MG/ML SDV IM ONE (01:42)
[2022-02-09 02:17] LABS: BLOOD UREA NITROGEN,BUN 23 mg/dL (7.0-18.0); CARBON DIOXIDE,CO2 29.8 mmol/L (21.0-32.0); CHLORIDE,CL 104 mmol/L (98-107); GLUCOSE RANDOM 102 mg/dL (74-106); POTASSIUM,K 4.5 mmol/L (3.5-5.1); SODIUM,NA 140 mmol/L (136-148)
== END 2022-02-09 02:55 | disposition home or self-care (01) ==
LOC: MW.ED 00:58
DX: R42 Dizziness and giddiness (principal); M79.661 Pain in right lower leg; I10 Essential (primary) hypertension; Z88.0 Allergy status to penicillin
CPT/HCPCS: 36415; 80053; 85025; 85379; 96372; 99284; J1885; 99283

== ENCOUNTER 2022-03-21 10:23 | Emergency (ER) | payer SELFPAY ==
[2022-03-21] MEDS ORDERED: Ketorolac 60 MG/2 ML SDV IM ONE (10:51)
[2022-03-21 12:02] LABS: CORONAVIRUS COVID-19 NAA NEGATIVE (NEGATIVE); INFLUENZA A NAA NEGATIVE (NEGATIVE); INFLUENZA B NAA NEGATIVE (NEGATIVE)
== END 2022-03-21 12:35 | disposition home or self-care (01) ==
LOC: MW.ED 10:23
DX: J32.9 Chronic sinusitis, unspecified (principal); I10 Essential (primary) hypertension; Z88.0 Allergy status to penicillin; Z79.899 Other long term (current) drug therapy; Z86.16 Personal history of COVID-19; Z20.822 Contact with and (suspected) exposure to COVID-19
CPT/HCPCS: 0240U; 93005; 96372; 99283; J1885

== ENCOUNTER 2022-06-13 18:50 | Emergency (ER) | payer SELFPAY | END 2022-06-13 20:30 | disposition home or self-care (01) | LOC: MW.ED 18:50 | DX: J02.9 Acute pharyngitis, unspecified (principal); H66.91 Otitis media, unspecified, right ear | CPT/HCPCS: 99282; 99283 ==

== ENCOUNTER 2022-08-04 21:59 | Emergency (ER) | payer SELFPAY ==
[2022-08-05] MEDS ORDERED: Acetaminophen 325 MG Tab PO ONE (00:42)
[2022-08-05] MEDS ORDERED: Ibuprofen 400 MG Tab PO ONE (00:42)
[2022-08-05 01:10] LABS: CORONAVIRUS COVID-19 NAA NEGATIVE (NEGATIVE); INFLUENZA A NAA NEGATIVE (NEGATIVE); INFLUENZA B NAA NEGATIVE (NEGATIVE); RESPIRATORY SYNCYTIAL VIR NAA NEGATIVE (NEGATIVE)
== END 2022-08-05 02:26 | disposition home or self-care (01) ==
LOC: MW.ED 21:59
DX: R09.89 Other specified symptoms and signs involving the circulatory and respiratory systems (principal); I10 Essential (primary) hypertension; F17.210 Nicotine dependence, cigarettes, uncomplicated; Z86.16 Personal history of COVID-19; Z88.0 Allergy status to penicillin; Z20.822 Contact with and (suspected) exposure to COVID-19
CPT/HCPCS: 0241U; 71045; 99285; A9270

== ENCOUNTER 2022-09-17 16:24 | Emergency (ER) | payer SELFPAY ==
[2022-09-17 17:32] LABS: CORONAVIRUS COVID-19 NAA NEGATIVE (NEGATIVE); INFLUENZA A NAA NEGATIVE (NEGATIVE); INFLUENZA B NAA NEGATIVE (NEGATIVE); RESPIRATORY SYNCYTIAL VIR NAA NEGATIVE (NEGATIVE)
== END 2022-09-17 17:54 | disposition home or self-care (01) ==
LOC: MW.ED 16:24
DX: J20.9 Acute bronchitis, unspecified (principal); I10 Essential (primary) hypertension; Z88.0 Allergy status to penicillin; Z79.899 Other long term (current) drug therapy; Z86.16 Personal history of COVID-19; Z20.822 Contact with and (suspected) exposure to COVID-19
CPT/HCPCS: 0241U; 71045; 93005; 99285

== ENCOUNTER 2022-09-27 16:04 | Emergency (ER) | payer SELFPAY ==
[2022-09-27 17:15] LABS: CORONAVIRUS COVID-19 NAA NEGATIVE (NEGATIVE); INFLUENZA A NAA NEGATIVE (NEGATIVE); INFLUENZA B NAA NEGATIVE (NEGATIVE); RESPIRATORY SYNCYTIAL VIR NAA NEGATIVE (NEGATIVE)
[2022-09-27] MEDS ORDERED: Albuterol/Ipratropium 3.0-0.5 MG/3 ML Neb Soln NEB ONE (17:42)
[2022-09-27 18:46] LABS: BLOOD UREA NITROGEN,BUN 17 mg/dL (7.0-18.0); CARBON DIOXIDE,CO2 27.5 mmol/L (21.0-32.0); CHLORIDE,CL 103 mmol/L (98-107); GLUCOSE RANDOM 100 mg/dL (74-106); POTASSIUM,K 3.9 mmol/L (3.5-5.1); SODIUM,NA 140 mmol/L (136-148)
[2022-09-27 18:51] LABS: ESTIMATED GFR 82 mL/min (>60)
== END 2022-09-27 19:58 | disposition home or self-care (01) ==
LOC: MW.ED 16:04
DX: R06.02 Shortness of breath (principal); I10 Essential (primary) hypertension; Z20.822 Contact with and (suspected) exposure to COVID-19; Z88.0 Allergy status to penicillin
CPT/HCPCS: 0241U; 36415; 71045; 80053; 83735; 84484; 85025; 85379; 86140; 93005; 99285; J7620-GY

== ENCOUNTER 2022-10-05 22:13 | Emergency (ER) | payer SELFPAY ==
[2022-10-05] MEDS ORDERED: Dextrose 5%-Lactated Ringers 1,000 ML IV STA (23:19)
[2022-10-05] MEDS ORDERED: Ketorolac 30 MG/ML SDV IVPUSH ONE ×2 (23:19→23:40)
[2022-10-05 23:46] LABS: CORONAVIRUS COVID-19 NAA NEGATIVE (NEGATIVE); INFLUENZA A NAA NEGATIVE (NEGATIVE); INFLUENZA B NAA NEGATIVE (NEGATIVE); RESPIRATORY SYNCYTIAL VIR NAA NEGATIVE (NEGATIVE)
[2022-10-06] MEDS ORDERED: Ketorolac 30 MG/ML SDV IVPUSH ONE (00:37)
== END 2022-10-06 00:50 | disposition home or self-care (01) ==
LOC: MW.ED 22:13
DX: R51.9 Headache, unspecified (principal); I10 Essential (primary) hypertension; Z88.0 Allergy status to penicillin; Z20.822 Contact with and (suspected) exposure to COVID-19
CPT/HCPCS: 0241U; 96361; 96374; 99284; J1885; J7121; 99283

== ENCOUNTER 2023-06-10 19:15 | Emergency (ER) | payer SELFPAY ==
[2023-06-10] MEDS ORDERED: diphenhydrAMINE 25 MG Cap PO ONE (19:27)
[2023-06-10] MEDS ORDERED: Cetirizine 10 MG Tab PO ONE (19:27)
[2023-06-10] MEDS ORDERED: Albuterol 0.083% 2.5 MG/3 ML Neb Soln NEB ONE (19:27)
[2023-06-10] MEDS ORDERED: Albuterol 8 GM Inhaler INH ONE (20:48)
== END 2023-06-10 21:01 | disposition home or self-care (01) ==
LOC: MW.ED 19:15
DX: T78.40XA Allergy, unspecified, initial encounter (principal); I10 Essential (primary) hypertension; Z86.16 Personal history of COVID-19; Z88.0 Allergy status to penicillin; Z88.1 Allergy status to other antibiotic agents; Z91.048 Other nonmedicinal substance allergy status
CPT/HCPCS: 99284; A9270; 99283; J7620-GY